=== PATIENT | female | born 1985 | race Caucasian/White ===

== ENCOUNTER 2020-02-08 00:18 | Emergency (ER) | payer OTHER ==
[2020-02-08] MEDS ORDERED: ONDANSETRON INJ 4 MG/2 ML VIAL IV ONE (00:30)
[2020-02-08] MEDS ORDERED: fentaNYL CITRATE INJ 50 MCG/ML AMP IV ONE (00:30)
[2020-02-08] MEDS ORDERED: SODIUM CHLORIDE 0.9% (FLUSH) 10 ML SYG IV PRN (00:30)
[2020-02-08] MEDS ORDERED: SODIUM CHLORIDE 0.9% 1000ML 1,000 ML IVS PRN (00:30)
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
[2020-02-08] MEDS ORDERED: cefTRIAXone SODIUM 2 GM in SODIUM CHL 0.9% 100ML MINI-BAG 100 ML IVPB ONE (01:54)
[2020-02-08 03:24] VITALS: TEMP 98; O2SAT 99
[2020-02-08 03:42] VITALS: BP 99/68
== END 2020-02-08 04:07 | disposition short-term general hospital (02) ==
LOC: ER 00:18
DX: S02.19XA Other fracture of base of skull, initial encounter for closed fracture (principal); S06.360A Traumatic hemorrhage of cerebrum, unspecified, without loss of consciousness, initial encounter; S09.22XA Traumatic rupture of left ear drum, initial encounter; V86.99XA Unspecified occupant of other special all-terrain or other off-road motor vehicle injured in nontraffic accident, initial encounter; Y92.9 Unspecified place or not applicable
CPT/HCPCS: 70450; 70486; 71045; 72125; 80053; 80307; 80320; 81001; 84703; 85025; 85610; 85730; 93005; J0696; J2405; J3010; J7030; J7050